=== PATIENT | female | born 1960 | race Caucasian/White ===

== ENCOUNTER 2017-04-11 12:06 | Observation (INO) | payer OTHER ==
--- NOTE | ~2017-04-11 | DS ---
Unit #: [id number] #: [id number] Patient: ROME AZUL [id number] [facility] [address] [place], [place] [address] [id number] MR#: [id number] NAME: ROME AZUL ROOM: 566 Age: 56 Sex: F Admission Date: 04/11/2017 : 1960 Discharge Date: 04/13/2017 Attending Physician: Goldie Mckeon M.D. DISCHARGE SUMMARY ADMITTING DIAGNOSES Include: 1. Supraventricular tachycardia. 2. Hypertension. 3. Former tobacco abuse. DISCHARGE DIAGNOSES Include: 1. Supraventricular tachycardia. 2. Hypertension. 3. Inflamed colon with positive white blood cell count. 4. Bronchitis. PROCEDURES PERFORMED DURING HOSPITALIZATION Include the following: The EKG shows sinus tachycardia with occasional PVCs. Previous EKG shows supraventricular tachycardia with a ventricular rate of 176. A Cardiolite stress test shows no stress-induced ischemia with normal LV-size and function. Chest x-ray shows no acute pulmonary findings. Urine drug screens completely negative. HOSPITAL COURSE Ms. Azul is a 56-year-old female who presented to the emergency room at [facility] with the feeling of her heart "fluttering." She was also feeling weak, dizzy, as well as short of breath and having some left-sided chest tightness. She was noted to have some SVT at a rate of 170s and was given adenosine. She converted to normal sinus rhythm and has remained in sinus rhythm since. She has been started on low-dose metoprolol. Cardiolite stress test showed no ischemia. She did have 2 episodes of loose stools and some lower abdominal cramping. This did show some inflammation and white blood cell count with microbiology evaluation of the stool. She will be started on Flagyl at discharge. She also has been diagnosed with bronchitis, and started on azithromycin. She will be discharged with these medications for the next 5-7 days. Currently now, she is up walking around with no dizziness, shortness of breath, chest pain and stating that she feels much better. DIAGNOSTIC STUDIES PERTINENT LABS DURING HOSPITALIZATION: Include: Sodium 139, potassium 4.0, glucose 91, BUN 7, creatinine 0.6, troponin 0.04, prior to that was 0.08, and initially was less than 0.05 x2 at point of care. TSH 2.38, magnesium 2.2, AST 18, ALT 18. Unit #: [id number] #: [id number] Patient: ROME AZUL DISCHARGE MEDICATIONS Include the followin. Aspirin 81 mg daily. 2. Flagyl 500 mg t.i.d. for 7-days. 3. Zithromax 250 mg daily until 04/18/17. 4. Lopressor 25 mg b.i.d. DISCHARGE INSTRUCTIONS DIET: Regular diet. ACTIVITY: As tolerated. FOLLOW-UP VISIT: Will be with Dr. Goldie Mckeon in the next 3 weeks. Dictated by... Keke Nova, A.P.R.N. for Jose Antonio Monet M.D. Baldomero TD: 04/14/2017 23:16 JOB #: [id number] DISCHARGE SUMMARY Page 1 of 1 X X DISCHARGE SUMMARY
--- NOTE | ~2017-04-11 | CR72 ---
[facility] A Service of [facility] & [facility] RADIOLOGY TEXT RESULTS PATIENT: ROME HART LOCATION: [facility] : 56 UNIT #: [id number] AGE: [address]: PIERRE COSTA MD SEX: F ORDER DR: [id number] [facility] [address] [place], [place] [address] [id number] I MR#: [id number] Acc #: [id number] NAME: ROME HART : 1960 SEX: F STUDY DATE/TIME: 04/11/2017 UNIT: [facility] ROOM: 94186 STUDY DESCRIPTION: CR Chest Single View Portable Attending Physician: Pierre Costa M.D. Ordering Physician: Mika Flor D.O. MEDICAL IMAGING REPORT This report is preliminary unless electronic signature is present EXAM Chest portable 04/11/2017 1332 hours HISTORY 56-year-old woman with shortness of air and palpitations for 1 day. COMPARISON 01/01/2016 FINDINGS Portable upright chest demonstrates heart size at the upper limits of normal. Mediastinal and hilar contours are normal. The lungs are well expanded and clear. There is no pulmonary venous distension or pleural fluid. No pneumothorax. IMPRESSION No acute cardiopulmonary findings. Dictated by... Monique Odell M.D. THIS IS AN ELECTRONICALLY VERIFIED REPORT Monique Odell M.D. at 04/11/2017 7:08 PM Viry TD: 04/11/2017 15:59 JOB #: [id number] MEDICAL IMAGING REPORT Page 1 of 1 COPY
--- NOTE | ~2017-04-11 | EKG ---
PATIENT: ROME HART UNIT #: [id number] Ventricular Rate: 106 BPM Atrial Rate: 106 BPM P-R Interval: 134 ms QRS Duration: 86 ms Q-T Interval: 346 ms QTC Calculation(Bezet): 459 ms P [place]: 51 degrees Calculated R [place]: 12 degrees Calculated T [place]: 65 degrees Diagnosis Line: Sinus tachycardia with occasional and consecutive Diagnosis Line: Premature ventricular complexes Diagnosis Line: Abnormal ECG Diagnosis Line: When compared with ECG of 11-APR-2017 12:09, Diagnosis Line: (unconfirmed) Diagnosis Line: Premature ventricular complexes are now Present Diagnosis Line: Vent. rate has decreased BY 70 BPM Diagnosis Line: Confirmed by ITZEL RAPHAEL MD ([id number]) on Diagnosis Line: 04/13/2017 8:45:03 AM INTERPRETING MD: DONAVON TRIPLETT
--- NOTE | ~2017-04-11 | TH ---
Unit #: [id number] #: [id number] Patient: ROME HART [address] [address] [id number] I MR#: [id number] NAME: ROME HART : 1960 SEX: F STUDY DATE/TIME: 04/12/2017 UNIT: [facility] ROOM: 566 STUDY DESCRIPTION: Nuclear stress test Attending Physician: Goldie Mckeon M.D. CARDIOLOGY REPORT EXAM Nuclear stress test. FINDINGS Result text under stress test. Please see this report for result text. Dictated by... Kathy Mclean/josefa TD: 04/13/2017 06:21 JOB #: [id number] CARDIOLOGY REPORT Page 1 of 1 X Wayne Nicole MD CARDIOLOGY REPORT
--- NOTE | ~2017-04-11 | EKG ---
PATIENT: ROME HART UNIT #: [id number] Ventricular Rate: 176 BPM Atrial Rate: 115 BPM QRS Duration: 86 ms Q-T Interval: 262 ms QTC Calculation(Bezet): 448 ms Calculated R [place]: 26 degrees Calculated T [place]: 73 degrees Diagnosis Line: Supraventricular tachycardia Diagnosis Line: Nonspecific ST abnormality Diagnosis Line: Abnormal ECG Diagnosis Line: When compared with ECG of 01-JAN-2016 08:46, Diagnosis Line: Vent. rate has increased BY 104 BPM Diagnosis Line: ST now depressed in Anterolateral leads Diagnosis Line: T wave inversion no longer evident in Inferior Diagnosis Line: leads Diagnosis Line: Confirmed by ITZEL ARPHAEL MD ([id number]) on Diagnosis Line: 04/13/2017 8:44:56 AM INTERPRETING MD: DONAVON TRIPLETT
--- NOTE | ~2017-04-11 | ST ---
Unit #: [id number] #: [id number] Patient: ROME HART [id number] [address] [address] [id number] I MR#: [id number] NAME: ROME HART : 1960 SEX: F STUDY DATE/TIME: 04/12/2017 UNIT: [facility] ROOM: 566 STUDY DESCRIPTION: Stress test Attending Physician: Goldie Mckeon M.D. CARDIOLOGY REPORT EXAM Combined EKG as well as nuclear part of the test. FINDINGS Patient's baseline heart rate 90 beats per minute, blood pressure 131/85. Patient's baseline EKG showing normal sinus rhythm and normal EKG. Patient exercised on standard Luis protocol for 6 minutes and 30 seconds and achieved peak heart rate of 101 beats per minute, which is 134 beats per minute, which is 82% of predicted heart rate. Peak blood pressure is 160/88. Patient's baseline EKG showing sinus rhythm. During the recovery, patient had 2 PVCs. Patient also had 11.11 mCi of Cardiolite at rest and 49.5 mCi of Cardiolite during stress. Both sets of images were compared. Patient shows fairly uniform uptake of radiotracer. No defect was noted. Patient also had gated SPECT scan done, which showed normal LV size and function. No wall motion abnormality detected. Ejection fraction is 71%. INTERPRETATION OF THE TEST 1. EKG part of the test negative for stress-induced ischemia. 2. Nuclear part of the test negative for myocardial ischemia. 3. Gated SPECT scan shows normal LV size and function. Dictated by... Kathy Mclean/josefa TD: 04/13/2017 06:13 JOB #: [id number] CARDIOLOGY REPORT Page 1 of 1 X Wayne Nicole MD CARDIOLOGY REPORT
--- NOTE | ~2017-04-11 | HP ---
Unit #: [id number] #: [id number] Patient: ROME HART [id number] [address] [place], [place] [address] [id number] I MR#: [id number] NAME: ROME HART ROOM: 08110 Age: 56 Sex: F Admission Date: 04/11/2017 : 1960 Attending Physician: Goldie Mckeon M.D. HISTORY AND PHYSICAL CHIEF COMPLAINT Palpitations. HISTORY OF PRESENTING ILLNESS This is a 56-year-old female with no prior cardiac history. She presented to the ER with heart "fluttering", weakness, dizziness, shortness of air and left chest tightness. The monitor showed a narrow complex SVT 170s. Adenosine was given and she converted to sinus tachycardia, low 100s. She proceeded to have couplets on the monitor frequently and continued to not feel well so we were asked to see her and evaluate. Denies prior history of hypertension, diabetes, chest pain or discomfort. Reports occasional episodes of palpitations, about once a month that, last 5 to 10 minutes and resolve with rest and deep breaths. Reports a recent illness with head congestion, fever, and body aches. She has been taking ajmy-giv-mukxdju phenylephrine sparingly since Tuesday for her symptoms and reports she has only taken three pills in total. PAST MEDICAL HISTORY Former tobacco abuse. Air-jqqe-nvl-awp-n54-trptr smoker but quit three years ago. PAST SURGICAL HISTORY 1. Tubal ligation. 2. Cholecystectomy. SOCIAL HISTORY States she is very active, works part time flexible clerk, former smoker but quit three years ago, rare alcohol use maybe once a year, denies illicit drug use. FAMILY HISTORY Her sister has afib, otherwise negative. PHYSICAL EXAMINATION VITAL SIGNS: Temperature 98.2, heart rate 104, respiratory rate 22, blood pressure 171/79. GENERAL: A 56-year-old female resting in bed in no acute distress. NECK: Supple. No jugular vein distention. Normal carotid upstrokes. No carotid bruits auscultated. HEART: S1 and S2. Irregular. No murmurs or rubs. LUNGS: Clear. Nonlabored respirations. ABDOMEN: Soft, nontender and nondistended. Positive bowel sounds times Unit #: [id number] #: [id number] Patient: ROME HART four quadrants. No ascites noted. EXTREMITIES: Bilateral lower extremities have no pretibial pitting edema. DP and PT pulses are 2+. Capillary refill is less than two seconds. DIAGNOSTIC STUDIES LABORATORY RESULTS: Sodium 138, potassium 3.6, chloride 107, BUN 9, creatinine 0.9, glucose 130, magnesium 2.2, hemoglobin 15.4, hematocrit 46.2, white blood cell count 11.8, platelets 270, TSH 2.38 and point of care troponin less than 0.05. CARDIOVASCULAR: EKG showed SVT, rate 170s. Repeat EKG shows sinus tachycardia with a rate of 106 and couplet premature ventricular complexes. IMPRESSION 1. Supraventricular tachycardia, questionable etiology. 2. Hypertension. 3. Former tobacco abuse. PLAN 1. We will add a temporary beta amol. Check 2D echocardiogram. Trend cardiac enzymes. Replace potassium. 2. We will evaluate her left ventricular ejection function as well as her valves. Continue to monitor heart rate and reduce her blood pressure. Await cardiac enzymes results. Dictated by NYDIA Pacheco TD: 04/11/2017 17:05 JOB #: [id number] HISTORY AND PHYSICAL Page 1 of 1 X X HISTORY AND PHYSICAL
[~2017-04-11 12:06] MED LIST: NO MEDICATIONS; NO MEDICATIONS PO; NORCO 10-325 TA1 TAB PO
[2017-04-11 12:50] LABS: BASOPHIL# 0.1 X10e3 (0-0.3); BASOPHIL% 0.5 % (0-2.5); EOSINOPHIL# 0.3 X10e3 (0-0.7); EOSINOPHIL% 2.6 % (0.0-7.0); HEMATOCRIT 46.2 % (35.0-45.0); HEMOGLOBIN 15.4 gm/dL (12.0-16.0); LYMPHOCYTE% 25.3 % (17.0-45.0); MEAN CELL VOLUME 88.3 FL (83-96); MEAN CORPUSCULAR HEMOGLOBIN 29.4 PG (28-34); MEAN CORPUSCULAR HGB CONC 33.3 g/dL (30-36); MEAN PLATELET VOLUME 9.3 FL (6.5-11.5); MONOCYTE# 0.8 X10e3 (0-1.0); MONOCYTE% 6.9 % (3.0-12.0); NEUTROPHIL# 7.7 X10e3 (1.5-7.1); NEUTROPHIL% 64.7 % (40-75); PLATELET COUNT 270 X10e3 (140-420); RED BLOOD COUNT 5.23 X10e (3.90-5.30); RED CELL DISTRIBUTION WIDTH 13.2 % (11.0-15.5); WHITE BLOOD COUNT 11.8 X10e3 (4.0-10.5)
[2017-04-11 12:53] LABS: DIFF IND NO
[2017-04-11 13:10] LABS: PROTHROMBIN TIME (PATIENT) 10.8 SECONDS (9.6-11.5)
[2017-04-11 13:12] LABS: POC - CKMB 8.1 ng/mL (0.0-7.9); POC - TROPONIN <0.05 ng/mL (<=0.05)
[2017-04-11 13:19] LABS: ALBUMIN SERUM 4.5 g/dL (3.5-5.0); BILIRUBIN, DIRECT 0.2 mg/dL (0.0-0.2); BILIRUBIN,INDIRECT 0.8 mg/dL (0.0-0.9); CALCIUM SERUM 9.1 mg/dL (8.4-10.2); CREATININE SERUM 0.9 mg/dL (0.6-1.4); GLOM FILT RATE Estimated 70.5 mL/min (>60); MAGNESIUM 2.2 mg/dL (1.6-3.0); POTASSIUM 3.6 mmol/L (3.5-5.1); PROTEIN TOTAL SERUM 8.1 g/dL (6.0-8.3)
[2017-04-11 13:56] LABS: AMPHETAMINE NEG (NEG); BARBITURATES NEG (NEG); BENZODIAZEPINES NEG (NEG); COCAINE NEG (NEG); MARIJUANA NEG (NEG); OPIATES NEG (NEG); TRICYCLIC ANTIDEPRESSANTS NEG (NEG); U METHADONE NEG (NEG)
[2017-04-11 15:22] LABS: POC - TROPONIN <0.05 ng/mL (<=0.05)
[2017-04-11] MEDS ORDERED: NO MEDICATIONS (17:43)
[2017-04-11 20:58] LABS: %MB 3.1 % (0.0-4.0)
[2017-04-12 03:18] LABS: MEAN CELL VOLUME 88.2 FL (83-96); MEAN CORPUSCULAR HEMOGLOBIN 29.5 PG (28-34); MEAN CORPUSCULAR HGB CONC 33.4 g/dL (30-36); MEAN PLATELET VOLUME 9.1 FL (6.5-11.5); RED BLOOD COUNT 4.76 X10e (3.90-5.30); WHITE BLOOD COUNT 9.6 X10e3 (4.0-10.5)
[2017-04-12 03:29] LABS: CK TOTAL 59 IU/L (26-140)
[2017-04-12 04:10] LABS: BUN/CREATININE RATIO 11.66; CALCIUM SERUM 8.9 mg/dL (8.4-10.2); CREATININE SERUM 0.6 mg/dL (0.6-1.4); GLOM FILT RATE Estimated 100.5 mL/min (>60)
[2017-04-13] MEDS ORDERED: METOPROLOL TART25 MG PO (14:19)
[2017-04-13] MEDS ORDERED: AZITHROMYCIN250 MG PO (14:20)
[2017-04-13] MEDS ORDERED: FLAGYL PO (14:21)
[2017-04-13] MEDS ORDERED: LOPRESSOR PO (14:24)
[2017-04-13] MEDS ORDERED: ASPIRIN81 MG PO (14:25)
[2017-07-22] MEDS ORDERED: METOPROLOL SUCC25 MG PO (12:31)
[2017-07-22] MEDS ORDERED: ZESTRIL2.5 M1 PO (12:32)
[2017-08-05] MEDS ORDERED: HYDROCODON-ACE1 EAC7 PO (09:31)
== END 2017-04-13 16:08 | disposition home or self-care (01) ==
LOC: CED 12:06 → CEDOF 14:40 → CED 15:37 → C5C 15:37 → CEDOF 17:45 → C5C 17:45
PROVIDERS: Emergency Medicine; Internal Medicine Interventional Cardiology
DX: I47.1 Supraventricular tachycardia (principal); I10 Essential (primary) hypertension; Z87.891 Personal history of nicotine dependence; K52.9 Noninfective gastroenteritis and colitis, unspecified; J40 Bronchitis, not specified as acute or chronic; I49.3 Ventricular premature depolarization; I07.1 Rheumatic tricuspid insufficiency; I51.9 Heart disease, unspecified; Z98.51 Tubal ligation status; Z84.89 Family history of other specified conditions; Z90.49 Acquired absence of other specified parts of digestive tract
CPT/HCPCS: 36415; 71010; 78452; 80048; 80076; 80307; 82550; 82553; 83630; 83735; 84443; 84484; 85025; 85027; 85610; 85730; 87493; 93005; 93017; 93306; 96361; 96374; 99285; A9500; G0378; J0153; J2405

== ENCOUNTER 2017-05-18 00:58 | Emergency (ER) | payer OTHER ==
--- NOTE | ~2017-05-18 | CR72 ---
[facility] A Service of [facility] RADIOLOGY TEXT RESULTS PATIENT: ROME HART LOCATION: [facility] : 56 UNIT #: [id number] AGE: [address]: Keo Bah MD SEX: F ORDER DR: [id number] [facility] [address] [place], [place] [address] [id number] MR#: [id number] Acc #: [id number] NAME: ROME HART : 1960 SEX: F STUDY DATE/TIME: 05/18/2017 3:45 UNIT: [facility] ROOM: STUDY DESCRIPTION: CR Chest Single View Portable Attending Physician: Keo Bah M.D. Ordering Physician: Keo Bah M.D. Primary Care Physician: Primary Care Physician No MEDICAL IMAGING REPORT This report is preliminary unless electronic signature is present EXAM Portable chest INDICATION Shortness of air and chest pain today. PROCEDURE Frontal view chest. COMPARISON 04/11/2017. FINDINGS Stable upper limits of normal heart size. No dense consolidation. No pleural fluid or pneumothorax. Possible 1.4 cm nodule in the right mid lung. IMPRESSION 1. No active process. 2. Possible 1.4 cm nodule in the right mid lung. Dictated by... Buzz Zendejas M.D. THIS IS AN ELECTRONICALLY VERIFIED REPORT Buzz Zendejas M.D. at 05/18/2017 10:29 PM EEAlexa/manuel TD: 05/18/2017 08:50 JOB #: [id number] MEDICAL IMAGING REPORT [facility] A Service of [facility] RADIOLOGY TEXT RESULTS PATIENT: ROME HART LOCATION: [facility] : 56 UNIT #: [id number] AGE: [address]: Keo Bah MD SEX: F ORDER DR: Page 1 of 1 COPY
--- NOTE | ~2017-05-18 | EKG ---
PATIENT: ROME HART UNIT #: [id number] Ventricular Rate: 79 BPM Atrial Rate: 79 BPM P-R Interval: 176 ms QRS Duration: 90 ms Q-T Interval: 382 ms QTC Calculation(Bezet): 438 ms P [place]: 60 degrees Calculated R [place]: 3 degrees Calculated T [place]: 22 degrees Diagnosis Line: Normal sinus rhythm Diagnosis Line: Normal ECG Diagnosis Line: When compared with ECG of 11-APR-2017 12:33, Diagnosis Line: Premature ventricular complexes are no longer Diagnosis Line: Present Diagnosis Line: Confirmed by STEPHON MONSALVE MD ([id number]) on Diagnosis Line: 05/18/2017 11:04:56 AM INTERPRETING MD: ZENAIDA
[~2017-05-18 00:58] MED LIST changes: +ASPIRIN81 MG PO; +AZITHROMYCIN250 MG PO; +FLAGYL PO; +LOPRESSOR PO; +METOPROLOL TART25 MG PO
[2017-05-18 03:08] LABS: POC - CKMB 1.9 ng/mL (0.0-7.9); POC - TROPONIN <0.05 ng/mL (<=0.05)
[2017-05-18 03:26] LABS: BASOPHIL% 0.5 % (0-2.5); EOSINOPHIL# 0.4 X10e3 (0-0.7); EOSINOPHIL% 4.1 % (0.0-7.0); HEMATOCRIT 41.7 % (35.0-45.0); HEMOGLOBIN 13.9 gm/dL (12.0-16.0); LYMPHOCYTE# 2.5 X10e3 (1.0-3.5); LYMPHOCYTE% 28.4 % (17.0-45.0); MEAN CELL VOLUME 88.4 FL (83-96); MEAN CORPUSCULAR HEMOGLOBIN 29.4 PG (28-34); MEAN CORPUSCULAR HGB CONC 33.2 g/dL (30-36); MEAN PLATELET VOLUME 9.6 FL (6.5-11.5); MONOCYTE# 0.7 X10e3 (0-1.0); MONOCYTE% 7.7 % (3.0-12.0); NEUTROPHIL# 5.3 X10e3 (1.5-7.1); NEUTROPHIL% 59.3 % (40-75); RED BLOOD COUNT 4.72 X10e (3.90-5.30); RED CELL DISTRIBUTION WIDTH 13.2 % (11.0-15.5); WHITE BLOOD COUNT 8.9 X10e3 (4.0-10.5)
[2017-05-18 03:29] LABS: DIFF IND NO; PLATELET COUNT 234 X10e3 (140-420)
[2017-05-18 03:41] LABS: ALBUMIN SERUM 4.1 g/dL (3.5-5.0); BILIRUBIN, DIRECT 0.2 mg/dL (0.0-0.2); BILIRUBIN,INDIRECT 0.6 mg/dL (0.0-0.9); BILIRUBIN,TOTAL 0.8 mg/dL (0.2-2.0); CALCIUM SERUM 9.1 mg/dL (8.4-10.2); CREATININE SERUM 0.5 mg/dL (0.6-1.4); GLOM FILT RATE Estimated 106.7 mL/min (>60); POTASSIUM 3.5 mmol/L (3.5-5.1); PROTEIN TOTAL SERUM 7.2 g/dL (6.0-8.3)
[2017-05-18 04:52] LABS: POC - CKMB 1.7 ng/mL (0.0-7.9); POC - TROPONIN <0.05 ng/mL (<=0.05)
[2017-05-18 05:29] LABS: URINE SOURCE CLEAN CATCH
[2017-05-18 05:37] LABS: URINE APPEARANCE CLEAR; URINE BILIRUBIN NEG (NEG); URINE BLOOD NEG (NEG); URINE COLOR YELLOW; URINE GLUCOSE NEG (NEG); URINE KETONE NEG (NEG); URINE LEUKOCYTE ESTERASE NEG (NEG); URINE NITRATE NEG (NEG); URINE PH 7.5 (5-8); URINE PROTEIN NEG (NEG); URINE SPECIFIC GRAVITY 1.003 (1.003-1.035); URINE UROBILINOGEN 0.2 MG/DL (NEG)
[2017-05-18 05:43] LABS: CULTURE INDICATED? NO
[2017-07-22] MEDS ORDERED: METOPROLOL SUCC25 MG PO (12:31)
[2017-07-22] MEDS ORDERED: ZESTRIL2.5 M1 PO (12:32)
[2017-08-05] MEDS ORDERED: HYDROCODON-ACE1 EAC7 PO (09:31)
== END 2017-05-18 05:50 | disposition home or self-care (01) ==
LOC: CED 00:58
PROVIDERS: Emergency Medicine
DX: R00.2 Palpitations (principal); R07.89 Other chest pain; R06.02 Shortness of breath; I10 Essential (primary) hypertension; Z79.899 Other long term (current) drug therapy
CPT/HCPCS: 36415; 71010; 80048; 80076; 81003; 82553; 83735; 84443; 84484; 85025; 93005; 99285

== ENCOUNTER → 2017-07-22 | Day surgery (SDC) | payer OTHER ==
[~2017-07-22] MED LIST changes: +HYDROCODON-ACE1 EAC7 PO; +METOPROLOL SUCC25 MG PO; +ZESTRIL2.5 M1 PO
--- NOTE | ~2017-07-22 | OR ---
Unit #: [id number] #: [id number] Patient: ROME HART [id number] [address] [address] [id number] MR#: [id number] NAME: ROME HART ROOM: Date of Procedure: 07/22/2017 Admission Date: 07/22/2017 Surgeon: Wayne Arndt M.D. : 1960 Attending Physician: Wayne Arndt M.D. Primary Care Physician: Primary Care Physician No OPERATIVE REPORT PRIMARY CARE PHYSICIAN Jah Dela Cruz D.O. PREOPERATIVE DIAGNOSES The patient presented with history of weight loss about 35 pounds and nausea. In addition, she has history of rectal pain and bilateral left and right lower quadrant abdominal pain. Lastly, the patient needs a screening colonoscopy having had not one in the past. PROCEDURES PERFORMED 1. Upper gastrointestinal endoscopy and biopsy. 2. Upper gastrointestinal endoscopy and dilation as well as colonoscopy with biopsies. POSTOPERATIVE DIAGNOSES For upper endoscopy: 1. The patient had distal erosive esophagitis. 2. There was early esophageal stricture involving the distal esophagus. This was treated by dilation using a 60-Portuguese Martinez dilator. 3. Mild prepyloric antral gastritis primarily in the form of erythema. A biopsy was obtained from the antrum for CLOtest. 4. Rest of the examination up to third part of duodenum was normal. For colonoscopy: The patient had a rectal mass about 6 cm from the anal orifice. This was palpable on rectal examination and was exophytic ulcerated friable mass, which was fungating and was occupying about 60% to 70% of the circumference of the rectum. Rest of the examination up to cecum and terminal ileum was normal. The quality of the prep was excellent. RECOMMENDATIONS The patient will undergo a CT scan of the abdomen and pelvis with oral and IV contrast along with lab evaluation and CEA levels. Oncology referral and a referral for a radiation therapy will be initiated. The patient will follow up with me in the office in a week to 10 days. SEDATION USED MAC. DESCRIPTION OF PROCEDURE Following detailed explanation of potential risks and complications of an upper endoscopy and a colonoscopy, the patient was brought to GI lab and laid in the left lateral decubitus position. Lubricated tip of the Unit #: [id number] #: [id number] Patient: ROME HART Olympus video upper endoscope was passed through the bite block into the proximal esophagus under direct vision. The entire esophageal mucosa was examined. The patient was noted to have distal erosive grade 2 esophagitis along with early esophageal stricture. A small hiatus hernia was encountered and traversed. Mucosa of the fundus, body, and antrum was examined. The patient was noted to have mild prepyloric antral erythema which was diffuse. Pylorus was intubated with visualization of the normal duodenal bulb and second and third part of the duodenum. Upon withdrawal and retroflexion; incisura, cardia, and greater curve was examined and a biopsy was obtained from the antrum for CLOtest. The scope was then withdrawn in the distal esophagus. The entire esophageal mucosa was examined all the way up to pharynx. No additional findings were noted. The examination table was then turned by 180 degrees and the patient positioned for a colonoscopy. A digital rectal examination was performed. The latter revealed presence of a hard mass in the rectum within 5 to 6 cm from the anal orifice. The mass was nearly circumferential. Lubricated tip of the Olympus video colonoscope was inserted through the anus and advanced under vision. As soon as the scope was advanced in the rectum, an exophytic ulcerated friable mass was noted in the rectum occupying 2/3rd of the circumference of colon. It was clearly nonobstructing. The scope was advanced past rectosigmoid into descending colon. No diverticula were noted in this area. The scope tip was then navigated all the way up to cecum with visualization of the ileocecal valve and the appendiceal orifice. Preparation was excellent with good visualization and photodocumentation was obtained. Last several inches of the terminal ileum were also visualized after intubation of the ileocecal valve and appeared normal. Successive segments of the colonic mucosa were examined upon withdrawal and appeared unremarkable. There being no polyps, mass lesions, or AVMs. No diverticulosis was noted. The attention was focused on the rectal mass. Multiple biopsies were obtained from different part of the mass and sent for histology. The patient did not have any hemorrhoids at the anal verge. The scope was then withdrawn and the patient returned to the recovery area. She tolerated the procedure without any postprocedure complications. Dictated by.Kathy Rubin TD: 07/22/2017 17:09 JOB #: [id number] CC: Jah Dela Cruz D.O. OPERATIVE REPORT Page 1 of 1 X Wayne Arndt MD PROCEDURE OPERATIVE NOTE
== END | disposition home or self-care (01) ==
LOC: COPS 11:14
DX: C20 Malignant neoplasm of rectum (principal); K22.2 Esophageal obstruction; K29.80 Duodenitis without bleeding; K20.8 Other esophagitis; Z87.891 Personal history of nicotine dependence; Z79.899 Other long term (current) drug therapy; Z90.49 Acquired absence of other specified parts of digestive tract; Z98.51 Tubal ligation status
CPT/HCPCS: 87077; 88305; J2250

== ENCOUNTER → 2017-07-26 | Outpatient (CLI) | payer OTHER ==
--- NOTE | ~2017-07-26 | CT2 ---
[facility] A Service of [facility] & [facility] RADIOLOGY TEXT RESULTS PATIENT: ROME HART [facility] 56 UNIT #: [id number] AGE: [address]: Wayne Arndt MD SEX: F ORDER DR: [id number] [facility] [address] [place], [place] [address] [id number] O MR#: [id number] Acc #: [id number] NAME: ROME HART : 1960 SEX: F STUDY DATE/TIME: 07/26/2017 16:32 [facility] ROOM: STUDY DESCRIPTION: CT Abd and Pelv W Cont Attending Physician: Wayne Arndt M.D. Referring Physician: Wayne Arndt M.D. Ordering Physician: Wayne Arndt M.D. Primary Care Physician: Jah Dela Cruz D.O. MEDICAL IMAGING REPORT This report is preliminary unless electronic signature is present EXAM CT abdomen and pelvis with contrast. HISTORY 57-year-old male newly diagnosed rectal carcinoma diagnosed 07/22/[address] abdomen and pelvis, 01/01/2016. TECHNIQUE Axial images performed through the abdomen and pelvis following IV and oral contrast. Multiplanar reconstructed images reviewed. This CT exam was performed with one or more of the following radiation dose reduction techniques: automatic exposure control, adjustment of mA and/or kV according to patient size, and iterative reconstruction. FINDINGS ABDOMEN: Lung bases remarkable for 1 cm noncalcified nodule right middle lobe or possibly anterior right lower lobe. This would be highly suspicious for metastatic disease. The liver demonstrates too numerous to count low-attenuation peripherally enhancing liver lesions, the largest seen within the caudate lobe measuring up to 5.8 cm. This is compatible with widely disseminated hepatic metastases. There is a low-density lesion in the inferior aspect of the right hepatic lobe measuring 3.9 cm, compatible with a cyst. Gallbladder absent. Spleen appears normal. Pancreas, kidneys, and adrenal glands are unremarkable. Stomach, small bowel appear normal. PELVIS: There is a large rectosigmoid mass, measuring at least 7.2 cm in cephalocaudal dimension and approximately 4.3 x 4.3 cm in greatest transverse dimensions. This is consistent with the patient's known rectal STS. [facility] A Service of [facility] & [facility] RADIOLOGY TEXT RESULTS PATIENT: ROME HART LOCATION: [facility] : 56 UNIT #: [id number] AGE: [address]: Wayne Arndt MD SEX: F ORDER DR: malignancy. There are several enlarged perirectal lymph nodes, particularly in the right perirectal tissues. Osseous structures and soft tissues unremarkable. Bladder and uterus unremarkable. IMPRESSION 1. Large rectosigmoid mass along the posterior aspect of the sigmoid extending into the presacral tissues. This is consistent with the patient's known and recently diagnosed rectosigmoid carcinoma. Probable enlarged perirectal lymph nodes. 2. Too numerous to count liver lesions, compatible with compatible with widely disseminated hepatic metastases. 3. 1 cm noncalcified nodule in the right lower lung, probably in the anterior segment right lower lobe highly concerning for a metastatic lesion. Dictated by... Gisel Guallpa M.D. THIS IS AN ELECTRONICALLY VERIFIED REPORT Gisel Guallpa M.D. at 07/28/2017 7:56 AM NAEEM/mirtha TD: 07/28/2017 01:39 JOB #: [id number] MEDICAL IMAGING REPORT Page 1 of 1 COPY
[2017-07-26 14:42] LABS: HEMOGLOBIN 13.7 gm/dL (12.0-16.0); MEAN CELL VOLUME 85.3 FL (83-96); MEAN CORPUSCULAR HEMOGLOBIN 29.9 PG (28-34); MEAN CORPUSCULAR HGB CONC 35.1 g/dL (30-36); MEAN PLATELET VOLUME 8.7 FL (6.5-11.5); RED BLOOD COUNT 4.57 X10e (3.90-5.30); RED CELL DISTRIBUTION WIDTH 13.1 % (11.0-15.5); WHITE BLOOD COUNT 7.8 X10e3 (4.0-10.5)
[2017-07-26 15:22] LABS: ALBUMIN SERUM 3.9 g/dL (3.5-5.0); BILIRUBIN,TOTAL 0.9 mg/dL (0.2-2.0); BUN/CREATININE RATIO 11.66; CALCIUM SERUM 9.3 mg/dL (8.4-10.2); CREATININE SERUM 0.6 mg/dL (0.6-1.4); GLOM FILT RATE Estimated 99.8 mL/min (>60); POTASSIUM 3.6 mmol/L (3.5-5.1); PROTEIN TOTAL SERUM 7.6 g/dL (6.0-8.3)
== END | disposition home or self-care (01) ==
LOC: CCAT 13:53
PROVIDERS: Internal Medicine Gastroenterology
DX: C20 Malignant neoplasm of rectum (principal); K76.9 Liver disease, unspecified; R91.1 Solitary pulmonary nodule
CPT/HCPCS: 36415; 74177; 80053; 82378; 85027; Q9967

== ENCOUNTER → 2017-08-05 | Outpatient (CLI) | payer OTHER ==
[~2017-08-05] VITALS: Ht 167.6 cm; Wt 68.6 kg
--- NOTE | ~2017-08-05 | XA91 ---
[facility] A Service of [facility] & [facility] RADIOLOGY TEXT RESULTS PATIENT: ROME HART LOCATION: [facility]R : 56 UNIT #: [id number] AGE: [address]: Ellis Belle MD SEX: F ORDER DR: [id number] [facility] [address]. [place], [place] [address] [id number] O MR#: [id number] Acc #: [id number] NAME: ROME HART : 1960 SEX: F STUDY DATE/TIME: 08/05/2017 10:10 UNIT: [facility]IVR ROOM: STUDY DESCRIPTION: XA CVC Tunneled W Port Attending Physician: Ellis Belle M.D. Referring Physician: Ellis Belle M.D. Ordering Physician: Ellis Belle M.D. Primary Care Physician: aJh Dela Cruz D.O. MEDICAL IMAGING REPORT This report is preliminary unless electronic signature is present EXAM MediPort placement. INDICATIONS Need for IV access in a patient with metastatic rectal cancer. TECHNIQUE The procedure was explained to the patient including risks, benefits, potential complications, potential for alternative forms of treatment, informed consent was obtained and prior to initiating the procedure a formal time-out procedure was performed. Using all elements of maximal sterile barrier technique including hand hygiene, caps, sterile gowns and gloves and masks, the right neck was prepped with 2% chlorhexidine for cutaneous antisepsis and covered with a large sterile sheet. The ultrasound probe was covered with a sterile probe cover and sterile gel was applied. Real-time sterile ultrasound guidance was used to localize the right internal jugular vein, which was found to be patent and compressible. A hard copy ultrasound image was obtained. After local anesthesia with 1% Xylocaine, the vein was punctured using real-time sterile ultrasound guidance and an 0.018 guidewire was advanced into the superior vena cava under fluoroscopic guidance. Micropuncture sheath was placed, a J-wire was advanced into the inferior vena cava. At this point, I turned my attention to creation of port pocket. Skin and subcutaneous tissues of the right anterolateral chest wall were anesthetized with buffered lidocaine and lidocaine with epinephrine. A small skin incision was made, port pocket was created using a combination of blunt and sharp dissection, port was seated within the pocket and secured using two 3-0 Vicryl sutures, catheter was then tunneled up through the right anterolateral chest wall to the insertion site at the neck. Peel-away sheath was advanced over the wire, catheter was measured and trimmed and was advanced through the Peel-Away sheath and positioned within the superior vena cava. Its position was confirmed with STS. [facility] A Service of [facility] RADIOLOGY TEXT RESULTS PATIENT: ROME HART LOCATION: [facility] : 56 UNIT #: [id number] AGE: [address]: Ellis Belle MD SEX: F ORDER DR: a radiographic image. Following placement of the catheter, it flushed and aspirated easily. Deep layer of the port pocket was closed using interrupted 3-0 Vicryl sutures and a running 4-0 Monocryl suture was used to close the skin, a single 4-0 Monocryl suture was used to close the insertion site at the neck. Patient did receive moderate sedation consisting of 5 mg of Versed, 100 mcg of fentanyl. I supervised the IVR nurse and monitored the patient's vital signs for a total of 27 minutes nhrv-vy-vikh time. AK was 1 mGy. Total fluoroscopy time was 0.1 minutes. IMPRESSION Successful placement of a right internal jugular vein MediPort which terminates in the superior vena cava. This catheter is ready for immediate use. Ultrasound and fluoroscopy were used during placement of the catheter and permanent images were saved. Dictated by... Brigitte Love M.D. THIS IS AN ELECTRONICALLY VERIFIED REPORT Brigitte Love M.D. at 08/08/2017 4:54 PM AFF/psc TD: 08/08/2017 14:54 JOB #: [id number] MEDICAL IMAGING REPORT Page 1 of 1 COPY
[2017-08-05 09:14] LABS: HEMATOCRIT 37.6 % (35.0-45.0); HEMOGLOBIN 12.8 gm/dL (12.0-16.0); MEAN CELL VOLUME 85.8 FL (83-96); MEAN CORPUSCULAR HEMOGLOBIN 29.3 PG (28-34); MEAN CORPUSCULAR HGB CONC 34.1 g/dL (30-36); MEAN PLATELET VOLUME 8.6 FL (6.5-11.5); RED BLOOD COUNT 4.38 X10e (3.90-5.30); RED CELL DISTRIBUTION WIDTH 12.9 % (11.0-15.5); WHITE BLOOD COUNT 7.5 X10e3 (4.0-10.5)
[2017-08-05 09:34] LABS: INR 1.1; PROTHROMBIN TIME (PATIENT) 12.1 SECONDS (10.0-11.7)
== END | disposition home or self-care (01) ==
LOC: CIVR 08:00
PROVIDERS: Internal Medicine Hematology & Oncology
DX: C20 Malignant neoplasm of rectum (principal); C78.7 Secondary malignant neoplasm of liver and intrahepatic bile duct; C78.01 Secondary malignant neoplasm of right lung; C78.02 Secondary malignant neoplasm of left lung; Z45.2 Encounter for adjustment and management of vascular access device; I10 Essential (primary) hypertension; Z79.899 Other long term (current) drug therapy; Z80.0 Family history of malignant neoplasm of digestive organs; Z80.41 Family history of malignant neoplasm of ovary; Z87.891 Personal history of nicotine dependence; Z90.49 Acquired absence of other specified parts of digestive tract; Z98.51 Tubal ligation status
CPT/HCPCS: 36415; 76937; 77001; 85027; 85610; 85730; 99152; 99153; J0690; J1642; J2250; J3010

== ENCOUNTER → 2017-08-08 | Outpatient (CLI) | payer OTHER ==
[~2017-08-08] VITALS: Ht 168.9 cm; Wt 68.7 kg
--- NOTE | ~2017-08-08 | XA60 ---
[facility] A Service of [facility] RADIOLOGY TEXT RESULTS PATIENT: ROME AZUL LOCATION: [facility] : 56 UNIT #: [id number] AGE: [address]: Ellis Belle MD SEX: F ORDER DR: [id number] [facility] [address] [place] [address] [facility]. [place], [place] [address] [id number] O MR#: [id number] Acc #: [id number] NAME: ROME AZUL : 1960 SEX: F STUDY DATE/TIME: 08/08/2017 8:12 UNIT: [facility] ROOM: STUDY DESCRIPTION: XA BX Perc Liver Attending Physician: Ellis Belle M.D. Ordering Physician: Ellis Belle M.D. Primary Care Physician: Jah Dela Cruz D.O. MEDICAL IMAGING REPORT This report is preliminary unless electronic signature is present EXAM CT-guided liver biopsy. INDICATIONS Ms. Azul is a lady with a history of metastatic rectal cancer. She has multiple hepatic lesions. FINDINGS Result text under order number [id number]. Please see this order for result text. Dictated by... Brigitte Love M.D. THIS IS AN ELECTRONICALLY VERIFIED REPORT Brigitte Loev M.D. at 08/09/2017 5:05 PM AFF/pc TD: 08/09/2017 14:02 JOB #: [id number] MEDICAL IMAGING REPORT Page 1 of 1 COPY
--- NOTE | ~2017-08-08 | CT134 ---
[facility] A Service of [facility] RADIOLOGY TEXT RESULTS PATIENT: ROME AZUL [facility] : 56 UNIT #: [id number] AGE: [address]: Ellis Belle MD SEX: F ORDER DR: [id number] [facility] [address]. [place], [place] [address] [id number] O MR#: [id number] Acc #: [id number] NAME: ROME AZUL : 1960 SEX: F STUDY DATE/TIME: 08/08/2017 8:12 [facility] ROOM: STUDY DESCRIPTION: CT Guide Attending Physician: Ellis Belle M.D. Ordering Physician: Ellis Belle M.D. Primary Care Physician: Jah Dela Cruz D.O. MEDICAL IMAGING REPORT This report is preliminary unless electronic signature is present EXAM CT-guided liver biopsy. INDICATIONS Ms. Azul is a lady with a history of metastatic rectal cancer. She has multiple hepatic lesions. PROCEDURE The risks, benefits, and alternatives to the procedure were explained to the patient and signed, informed consent was obtained. She was placed supine on the CT scanner gantry. Preliminary CT scan was performed through region of interest and appropriate site overlying the patient's medial hepatic segment lesion was selected. The overlying skin was marked. Patient was prepped and draped in usual sterile fashion. Time-out was performed as per protocol. Skin and subcutaneous tissues were anesthetized with buffered lidocaine. Anesthesia needle was left in place. Repeat CT scan confirmed appropriate trajectory of the needle and, subsequently, a 17-gauge coaxial needle was advanced into the lesion. Repeat CT scan confirmed appropriate position of the needle and, at this point, several core samples were obtained using an 18-gauge BioPince biopsy gun. Needle was then removed and medial pressure was applied until hemostasis was obtained. Patient did receive moderate sedation consisting of 3 mg of Versed and 100 mcg of fentanyl. I supervised the IVR nurse who monitored the patient's vital signs for a total of 11 minutes face to face time. This CT exam was performed with one or more of the following radiation dose reduction techniques: automatic exposure control, adjustment of mA and/or kV according to patient size, and iterative reconstruction. IMPRESSION Technically successful CT-guided liver biopsy as noted above. CT was used during the procedure and permanent images were saved. [facility] A Service of [facility] RADIOLOGY TEXT RESULTS PATIENT: ROME AZUL LOCATION: [facility] #: [id number] : 56 UNIT #: [id number] AGE: [address]: Ellis Belle MD SEX: F ORDER DR: Dictated by... Brigitte Love M.D. THIS IS AN ELECTRONICALLY VERIFIED REPORT Brigitte Love M.D. at 08/09/2017 5:03 PM AFF/pc TD: 08/09/2017 14:00 JOB #: [id number] MEDICAL IMAGING REPORT Page 1 of 1 COPY
[2017-08-08 06:57] LABS: HEMATOCRIT 38.3 % (35.0-45.0); HEMOGLOBIN 13.5 gm/dL (12.0-16.0); MEAN CELL VOLUME 84.7 FL (83-96); MEAN CORPUSCULAR HEMOGLOBIN 29.8 PG (28-34); MEAN CORPUSCULAR HGB CONC 35.2 g/dL (30-36); MEAN PLATELET VOLUME 8.5 FL (6.5-11.5); RED BLOOD COUNT 4.53 X10e (3.90-5.30); RED CELL DISTRIBUTION WIDTH 12.9 % (11.0-15.5); WHITE BLOOD COUNT 7.3 X10e3 (4.0-10.5)
[2017-08-08 07:10] LABS: INR 1.1; PARTIAL THROMBOPLASTIN TIME 26.5 SECONDS (23.5-31.3); PROTHROMBIN TIME (PATIENT) 11.8 SECONDS (10.0-11.7)
== END | disposition home or self-care (01) ==
LOC: CIVR 06:20
PROVIDERS: Internal Medicine Hematology & Oncology
DX: C78.7 Secondary malignant neoplasm of liver and intrahepatic bile duct (principal); C20 Malignant neoplasm of rectum; C78.01 Secondary malignant neoplasm of right lung; C78.02 Secondary malignant neoplasm of left lung
CPT/HCPCS: 36415; 77012; 85027; 85610; 85730; 88307; 99152; 99153; J2250; J3010